=== PATIENT | female | born 1955 | race Caucasian/White ===

== ENCOUNTER 2018-02-25 08:53 | Inpatient (IN) ==
--- NOTE | 2018-02-25 06:47 | Discharge Summary ---
<Rajendra Quinones - Last Filed: 02/27/18 06:47> Orders not resulted at time of discharge: Pending orders 02/25/18 06:46 XR hip complete LT [XR] Routine 02/25/18 06:47 H/H [Hemoglobin and Hematocrit] [HEME] Routine 02/25/18 09:12 US anesthesia pain block [US] Routine Date of Encounter: 02/27/18 - Discharge Diagnosis (1) Arthritis of left hip Priority: Primary Status: Chronic (2) Status post total hip replacement, left Priority: Primary Status: Acute (3) DMII (diabetes mellitus, type 2) Priority: Secondary Status: Chronic Qualifiers: Diabetes mellitus staffing specialist insulin use: without longterm use Diabetes mellitus complication status: with unspecified complications Qualified Code(s) : E11.8 - Type 2 diabetes mellitus with unspecified complications (4) HLD (hyperlipidemia) Priority: Secondary Status: Chronic Qualifiers: Hyperlipidemia type: mixed hyperlipidemia Qualified Code(s): E78.2 - Mixed hyperlipidemia (5) HTN (hypertension) Priority: Secondary Status: Chronic Qualifiers: Hypertension type: essential hypertension Qualified Code(s): I10 - Essential (primary) hypertension (6) Obesity (BMI 30.0-34.9) Priority: Secondary Status: Chronic (7) Tobacco use Priority: Secondary Status: Chronic (8) Acute blood loss anemia Priority: Primary Status: Acute (9) Foot drop, left Priority: Primary Status: Acute - Hospital Course Hospital course: Ms. Zaidi is a 62 year old female - Time Spent with Patient Total time spent providing and/or coordinating discharge services: - Discharge Medications Home Medications: Aspirin Enteric Coated [Aspirin EC] 325 mg PO BID #20 tablet. 02/25/18 [Rx] Aspirin [Lo-Dose Aspirin EC] 81 mg PO DAILY 02/25/18 [History] Cetirizine HCl [All Day Allergy] 10 mg PO DAILY 02/25/18 [History] Escitalopram [Lexapro] 20 mg PO DAILY 02/25/18 [History] Gabapentin [Neurontin] 300 mg PO BID 02/25/18 [History] HYDROcodone/Acet 5/325 mg [[place] 5-325 mg] 1 tab PO Q6H PRN 7 Days #28 tab 02/25 [Rx] Levothyroxine [Synthroid] 25 mcg PO 0630 02/25/18 [History] Lisinopril/Hydrochlorothiazide [Zestoretic 20-12.5 mg Tablet] 1 tab PO DAILY [History] Lovastatin [Lovastatin] 10 mg PO HS 02/25/18 [History] Metformin HCl 500 mg PO BID 02/25/18 [History] Montelukast [Singulair] 10 mg PO HS 02/25/18 [History] Naproxen [Naproxen] 500 mg PO Q12H PRN 02/25/18 [History] Tizanidine HCl [Tizanidine HCl] 4 mg PO TID PRN 02/25/18 [History] Allergies/Adverse Reactions: 3 Allergy/AdvReac Type Severity Reaction Status Date / Time codeine Allergy Numbness Verified 02/12/18 13:37 sulfamethoxazole Allergy Swelling Verified 02/12/18 13:37 [From Bactrim] of Lip/Tongue/Throat trimethoprim [From Bactrim] Allergy Swelling Verified 02/12/18 13:37 of Lip/Tongue/Throat Primary care physician: Janene Duran CNP - Patient Status Disposition: Home Health Service Condition: Good - Discharge Instructions Follow Up With: Rajendra Quinones MD [Partnered Physician] - 03/27/18 4:45 pm Kell Rueda PAC [Physician Machine Chain Maker] - 03/07/18 8:00 am (Second followup: 03/15/18 @ 8am) Additional Instructions: Discharge Instructions: Total Hip Replacement Please call [facility] ([phone]), your Primary Care Physician, or report to the Emergency Room if you have any of the following symptoms: Nausea, vomiting, fever greater that 101.5, swelling, chest pain, shortness of breath, increased pain/redness/drainage/odor for your incision site, numbness/ tingling, or any other concerning symptoms. ACTIVITY:Weight-bearing as tolerated for 8 weeks with hip dislocation precautions that physical therapy taught you. You may progress as tolerated under the guidance of your physical therapist. You do not need to sleep with a pillow between your legs. You can also seep on the operative side or on your stomach. Incentive Spirometer 10 times an hour. MEDICATIONS: Upon discharge resume your home medications. Take all the medications as prescribed. Take a stool softener if taking narcotic pain medications. Stool softeners are only effective if you drink enough fluids. Drink 6-8 glass of water or fluids a day, unless this is not allowed for another health problem. Despite using stool softeners, if you haven't had a bowel movement in 3 days, please switch to a gentle laxative. Gentle laxatives are sold over the counter. You should have a bowel movement within 24 hours, if not call the office. You will be discharged from the hospital with a prescription for pain medication. You are encouraged to decrease the use of narcotic pain medication as tolerated. Should you require a refill, please call the office. [facility] prescribes narcotic pain medication for only 4-6 weeks after surgery. If you require pain medication beyond this time period, you may be referred to your Primary Care Physician or to the Pain Clinic for further evaluation. Plan ahead for refills on pain medication as many narcotics either need to be picked up at the office or mailed. It is best to call 48-72 hours in advance of needing a prescription refill so you don't run out of medication. To help control the post-operative pain, you may take NSAIDs (Aleve,Advil, Motrin, ibuprofen, naprosyn) or Tylenol as prescribed on the bottle in addition to the pain medication. ANTICOAGULATION (blood thinners): Continue your Aspirin, Lovenox or Coumadin as prescribed to help prevent a blood clot in the leg or in the lungs. As long as your incision remains dry and you tolerate the NSAIDs (Aleve, Advil, Motrin, Ibuprofen, Naprosyn), it is OK to use the NSAIDS while you are taking your anticoagulation medication. Should your incision start to drain, stop the NSAID and contact our office. Common symptoms of blood clot in the legs include: localized pain, swelling, calf tenderness, redness or discoloration of the skin. Blood clot in the lung symptoms include: shortness of breath, rapid pulse, sweating, and chest pain that worsens with deep breathing, coughing up blood, lightheadedness, feelings of anxiety. If you experience any of these symptoms notify your physician immediately, go to the emergency room, or if having trouble breathing, call 911. WOUND CARE: Leave the dressing on for 7 to 10days. You may change the dressing if it is saturated greater than 50%. Do not get the dressing wet at anytime. Wash your hands with antibacterial soap, rinse and dry prior to any wound care. If you have jaren the visiting nurse or rehab facility can remove the stapes 10-14 days after surgery and place steri-strips across the wound. Leave the steri-strips in place until they fall off on their own. You may let water from the shower run on top of the steri-strips. If you do not have a visiting nurse or rehab facility, you will need to return to the office at 10-14 days for the jaren to be removed. If you have itching or redness around the dressing call the office. FOLLOW-UP: Please follow up with your surgeon in the orthopedic clinic in 6 weeks from the day of surgery. If you have jaren that need to be removed, you will need to come back to the office in 10-14 days from the day of surgery. <Kell Rueda - Last Filed: 02/27/18 10:32> Date of Encounter: 02/27/18 Time of Encounter: 10:27 - Discharge Diagnosis (1) Status post total hip replacement, left Priority: Primary Status: Acute Comments: Hip: LEFT 02/25 Opsite dressing, leave intact until first post-operative visit. If dressing becomes >50% saturated, contact office, remove dressing and place appropriate dressing in its place. Do not allow for dressing to get wet. Zipline dressing in place, plan to remove at POD#14-16. PT: Total Hip Joint Precautions x 6 weeks AFO brace: Dx - Drop foot - continue to use while ambulating. PT to focus on ankle ROM and strength. Apply ICE/cold therapy wrap 3-6x/day for 20 minutes at a time. Encourage ambulation throughout the day and incentive spirometer 10x/hour. Elevate affected extremity above heart as tolerated. Brace: Hip Abduction brace at night x 6 weeks Acute blood loss anemia: Repeat H/H on 02/28/18, and Sunday 03/04 (2) Arthritis of left hip Priority: Primary Status: Chronic (3) Foot drop, left Status: Acute Comments: AFO brace: Dx - Drop foot - continue to use while ambulating. PT to focus on ankle ROM and strength. Apply ICE/cold therapy wrap 3-6x/day for 20 minutes at a time. Encourage ambulation throughout the day and incentive spirometer 10x/hour. Elevate affected extremity above heart as tolerated. (4) Acute blood loss anemia Status: Acute Comments: Acute blood loss anemia: Repeat H/H on 02/28/18, and Sunday 03/04 Short CBC 02/27/18 Range/Units 00:48 Hgb 9.1 L D (11.5-15.4) g/dL Hct 27.4 L (35.3-44.9) % BMP 02/27/18 Range/Units 00:48 Sodium 135 L (136-145) mEq/L Potassium 4.0 (3.5-5.1) mEq/L Chloride 101 (98-107) mEq/L Carbon Dioxide 27 (23-29) mEq/L BUN 15 (8-23) mg/dL Creatinine 0.65 (0.60-1.20) mg/dL Glucose 170 H (70-105) mg/dL Calcium 8.4 L (8.6-10.3) mg/dL (5) DMII (diabetes mellitus, type 2) Priority: Secondary Status: Chronic Qualifiers: Diabetes mellitus longterm insulin use: without longterm use Diabetes mellitus complication status: with unspecified complications Qualified Code(s) : E11.8 - Type 2 diabetes mellitus with unspecified complications (6) HTN (hypertension) Priority: Secondary Status: Chronic Qualifiers: Hypertension type: essential hypertension Qualified Code(s): I10 - Essential (primary) hypertension (7) HLD (hyperlipidemia) Priority: Secondary Status: Chronic Qualifiers: Hyperlipidemia type: mixed hyperlipidemia Qualified Code(s): E78.2 - Mixed hyperlipidemia (8) Tobacco use Priority: Secondary Status: Chronic (9) Obesity (BMI 30.0-34.9) Priority: Secondary Status: Chronic - Hospital Course Hospital course: Ms. Zaidi is a 62 year old female, status post Left THR 02/25. Patient was noted to have Left Drop foot on 02/26 - started AFO brace and discussed with patient. Will continue use during ambulation. Patient noted to have H/H drop 9.1, stable condition, asymptomatic. She has otherwise had uneventful post-operative course. PT recommended ECF placement, patient opted to return home with HH. HH to repeat H/H in AM, and again on Sunday 03/04 for monitoring. If patient becomes symptomatic she is to RTC. F/up as scheduled. Discharge 02/27 in stable condition. - Time Spent with Patient Total time spent providing and/or coordinating discharge services: Date of admission: 02/25 Primary care physician: Janene Duran CNP Anticipated date of discharge: 02/27/18 - Patient Status Functional capacity at discharge: independent ambulation Overall status at discharge: patient is progressing back to baseline (Left Drop foot discussed; Acute Blood loss anemia.)
[2018-02-25] MEDS ORDERED: Famotidine 20 MG/2 ML VIAL IVP ONE (09:10)
[2018-02-25] MEDS ORDERED: Pregabalin 75 MG CAPSULE PO ONE (09:11)
[2018-02-25] MEDS ORDERED: Acetaminophen IV 1,000 MG/100 ML INFUS..BTL IVPB ONE (09:11)
[2018-02-25] MEDS ORDERED: Ondansetron 4 MG/2 ML VIAL ONE (09:12)
[2018-02-25] MEDS ORDERED: *HR* Succinylcholine 200 MG/10 ML VIAL IVP ONE (09:12)
[2018-02-25] MEDS ORDERED: Lidocaine -MPF 2% 2 ML VIAL ONE (09:12)
[2018-02-25] MEDS ORDERED: CeFAZolin Syr 2,000MG/20 ML 2,000 MG/20 ML SYRINGE IVPB ONE (09:13)
[2018-02-25] MEDS ORDERED: *HR* FentaNYL (PF) 100 MCG/2 ML VIAL ONE ×3 (09:13→11:22)
[2018-02-25] MEDS ORDERED: Albuterol 2.5 MG/3 ML NEBULIZER IH ONE (09:13)
[2018-02-25] MEDS ORDERED: *HR* Midazolam HCl 2 MG/2 ML VIAL ONE (09:13)
[2018-02-25] MEDS ORDERED: *HR* Propofol 200 MG/20 ML VIAL IVP ONE ×2 (09:13→10:54)
[2018-02-25] MEDS ORDERED: Ringers Solution, Lactated 1,000 ML IVC SCH (09:15)
[2018-02-25] MEDS ORDERED: Dexamethasone 4 MG/ML VIAL ONE ×2 (09:15→11:12)
--- NOTE | 2018-02-25 09:27 | History & Physical Report ---
Date of Encounter: 02/25/18 Time of Encounter: 09:27 24 Hour HP Update - Instructions Instructions: If the History and Physical is less than 30 days old and was completed prior to A.M. admission and or procedure and has NOT been updated on calendar day of procedure please complete this update prior to performing procedure. - Update Patient reports changes in Medical Condition: No Changes in examination, assessment, or condition: No Changes in Medication: No Preop tests/diagnostics Reviewed: Yes Surgery Remains Indicated: Yes Consent for Planned Operative Procedure(s) Verified: Yes - Pre-Operative Checklist Preoperative Checklist Indicated: No Prophylactic Antibiotic Ordered: Yes Is VTE Prophylaxis Indicated?: Yes
[2018-02-25] MEDS ORDERED: Bupivacaine/Clonidine Syringe 1 EACH SYRINGE ONE (09:38)
--- NOTE | 2018-02-25 09:44 | Anesthesia Evaluation PreOp ---
Date of Encounter: 02/25/18 Time of Encounter: 09:40 - Past History Planned Operation: Left THR Cardiac History: HTN, Hyperlipidemia Pulmonary History: Smoker HIDE SPLITTER History: Denies Any Significant HX Other Medical History: Thyroid Anesthesia History: No Prior Anesthetic Complications : No Alcohol Use: none Drug use: none Medications and Allergies Aspirin Enteric Coated [Aspirin EC] 325 mg PO BID #20 tablet. 02/25/18 [Rx] Aspirin [Lo-Dose Aspirin EC] 81 mg PO DAILY 02/25/18 [History] Cetirizine HCl [All Day Allergy] 10 mg PO DAILY 02/25/18 [History] Escitalopram [Lexapro] 20 mg PO DAILY 02/25/18 [History] Gabapentin [Neurontin] 300 mg PO BID 02/25/18 [History] HYDROcodone/Acet 5/325 mg [[place] 5-325 mg] 1 tab PO Q6H PRN 7 Days #28 tab 02/25 [Rx] Levothyroxine [Synthroid] 25 mcg PO 0630 02/25/18 [History] Lisinopril/Hydrochlorothiazide [Zestoretic 20-12.5 mg Tablet] 1 tab PO DAILY [History] Lovastatin [Lovastatin] 10 mg PO HS 02/25/18 [History] Metformin HCl 500 mg PO BID 02/25/18 [History] Montelukast [Singulair] 10 mg PO HS 02/25/18 [History] Naproxen [Naproxen] 500 mg PO Q12H PRN 02/25/18 [History] Tizanidine HCl [Tizanidine HCl] 4 mg PO TID PRN 02/25/18 [History] 3 Allergy/AdvReac Type Severity Reaction Status Date / Time codeine Allergy Numbness Verified 02/12/18 13:37 sulfamethoxazole Allergy Swelling Verified 02/12/18 13:37 [From Bactrim] of Lip/Tongue/Throat trimethoprim [From Bactrim] Allergy Swelling Verified 02/12/18 13:37 of Lip/Tongue/Throat - Meds/Allergy Pre-op Review Medications Reviewed: Yes Allergies Reviewed: Yes Beta Blockers on Current Med List: No Anesthesia Results - Labs Laboratory Tests 02/12/18 02/12/18 13:47 13:47 Hgb 16.4 H Hct 48.2 H Plt Count 223 Sodium 135 L Potassium 3.9 BUN 10 Creatinine 0.74 - Imaging EKG: report reviewed (SB) Anesthesia Exam O2 Sat Height 1.57 m Height 1.57 m Height 1.57 m Weight 79.832 kg Weight 79.832 kg Weight 79.832 kg O2 Sat by Pulse Oximetry 94 O2 Sat by Pulse Oximetry 94 Vital Signs Temp Pulse Resp BP Pulse Ox 98.3 F 81 18 148/77 94 02/25/18 09:14 02/25/18 09:14 02/25/18 09:14 02/25/18 09:14 02/25/18 09:14 Height: 5'2 Weight: 176 lbs NPO (# of Hours): MN Pain Scale: 0 - HEENT Pupil (Motor): Pupils equal, EOMI Mallampati: III Teeth: Normal Oral Opening: Less than or equal to 3 - HIDE SPLITTER LOC: Oriented HIDE SPLITTER Motor: Normal RUE, Normal LUE, Normal RLE, Normal LLE, Normal Face HIDE SPLITTER Sensory: Normal: RUE, LUE, RLE, LLE, Face - Cardiac Rhythm: Regular Murmur: None JVD: No Carotid Bruit: No - Pulmonary Breath Sounds: bilateral Clear Respiratory Effort: Symmetrical Anesthesia Assess/Plan ASA Score: 2 Modified Michael Scale for Level of Consciousness: Cooperative, oriented, and tranquil Anesthetic Plan: General, Regional Monitoring Plan: Standard Monitors Recovery Plan: PACU (Discussed GA and Fascia Iliaca Block, agrees to proceed)
[2018-02-25] MEDS ORDERED: Ethanol\\Acetic Acid\\Na Ace\\Ben 1,000 ML IRRIG.SOLN IR ONE (10:04)
[2018-02-25] MEDS ORDERED: ROPIVACAINE HCL/PF 0.5% 30 ML VIAL ONE (10:11)
[2018-02-25] MEDS ORDERED: Water for inj. (sterile) 30 ML IV ONE (10:14)
[2018-02-25] MEDS ORDERED: Lidocaine -MPF 4% 5 ML AMPUL ONE (10:30)
--- NOTE | 2018-02-25 10:32 | Anesthesia Procedures ---
Date of Encounter: 02/25/18 Time of Encounter: 10:15 Procedures: Anesthesia - Nerve Block Procedure Date: 02/25/18 Time: 10:15 Allergies/Adv Reactions: 3 Allergy/AdvReac Type Severity Reaction Status Date / Time codeine Allergy Numbness Verified 02/12/18 13:37 sulfamethoxazole Allergy Swelling Verified 02/12/18 13:37 [From Bactrim] of Lip/Tongue/Throat trimethoprim [From Bactrim] Allergy Swelling Verified 02/12/18 13:37 of Lip/Tongue/Throat Pre-op Diagnosis: left hip arthritis Surgical Procedure: left robotic total hip Checklist: Correct Patient Identifier, Correct procedure, History checked Correct side: Left Blood Thinner: No Monitor Applied: EKG, BP, Pulse Oximetry Supplemental Oxygen via Nasal Cannula (L/min): 2 Sedation: Versed (mg): 2 Sedation: Fentanyl (mcg): 100 Indication: Post Op Analgesia Pre-op Neuro Deficits: No Block Type: Other (fascia illiaca) Sterile Technique: Yes Ultrasound used: Yes Anatomy identified: Yes Visual spread of Local: Yes Smooth Injection of Local: Yes Pain with Injection of Local: No Prep: Chlorhexadine Needle: 21 x 100 mm Stimuplex Local: Ropivacaine (0.25% ) Volume (cc): 60 Number of Attempts: 1 Complications: None/effective block Vitals: Vital Signs Vital Signs Assessment Start: 02/25/18 09:11 Freq: CONT Status: Active Protocol: Activity Type Activity Date Activity User E-Sign Co-Sign Detail Recorded Client Recorded Date Recorded By Created 02/25/18 09:12 SID [email or web address] 02/25/18 09:12 PASQUALEG DAEMON Temp Pulse Resp BP Pulse Ox 02/25/18 10:29 70 119/65 94 02/25/18 10:23 68 157/82 93 02/25/18 09:20 98.3 F 81 18 148/77 94 02/25/18 09:14 98.3 F 81 18 148/77 94
[2018-02-25] MEDS ORDERED: *HR* Magnesium Sulfate 1 GM/2 ML VIAL ONE (10:50)
[2018-02-25] MEDS ORDERED: *HR* PHENYLEPHRINE 1,000 MCG/10 ML SYRINGE IVP ONE (11:19)
[2018-02-25] MEDS ORDERED: *HR* OxyCODONE Immed Rel 5 MG TABLET PO PRN ×2 (11:32→14:01)
[2018-02-25] MEDS ORDERED: *HR* Meperidine 25 MG/ML SYRINGE IVP PRN (11:32)
[2018-02-25] MEDS ORDERED: Naloxone 0.4 MG/ML INJ IVP PRN ×2 (11:32→14:01)
[2018-02-25] MEDS ORDERED: *HR* Labetalol 20 MG/4 ML SYRINGE IVP PRN (11:32)
[2018-02-25] MEDS ORDERED: *HR* Promethazine 25 MG/ML VIAL IVP PRN (11:32)
--- NOTE | 2018-02-25 11:44 | Orthopedic Operative Note ---
Date of procedure: 02/25/18 Pre-op diagnosis: Left hip arthritis Post-op diagnosis: same Procedure: Procedure: Left Total Hip Replacment robotic-assisted Estimated blood loss: 200 cc Hardware: Metal and polyethylene replacement. Treva DM Cup: 52 cup Femoral size 9 stem Head: +8 head with Zoë Procedural Notes: Grade 4 arthritic changes femoral head acetabular socket, procedure performed with robotic assistance. 2 mm longer operative versus nonoperative side as measured by preoperative CT scan Operative procedure: The patient was brought to the operating room and placed on the operating room table. After general anesthesia was administered the patient was placed in the lateral decubitus position with the operative leg up. All pressure points were padded appropriately and the head was stabilized in the neutral position. The operative extremity was prepped and draped in the sterile surgical fashion patient received IV antibiotic prior to skin incision. 3 Steinmann pins were placed in the iliac crest 3 cm proximal to the anterior superior iliac spine this was for the robotic-assisted sensor. This was done through a small 2 cm incision. A standard posterior approach is made to the operative hip, the incision was made through the skin and subcutaneous tissue hemostasis was obtained with Bovie cautery. Using careful sharp dissection the fascia was identified and incised exposing the external rotators. The femoral checkpoint was placed leg length was measured at this time utilizing robotic assistance. The external rotators were released off the greater trochanter and tagged with # 2 FiberWire suture. The capsule was T'd open and the hip was brought into internal rotation. Patient noted to have grade 4 arthritic changes femoral head. The femoral neck cut was made at the appropriate level roughly 11 mm proximal to the lesser trochanter aced on preoperative templating. An anterior capsulotomy was performed for the anterior retractor. Soft tissues removed from the acetabulum. Patient noted to have grade 4 arthritic changes acetabulum. The acetabulum checkpoint was placed confirmed. The acetabulum was then mapped with robotic assistance. Based on the preoperative plan the acetabulum was reamed in one step with a X reamer. The X acetabulum was impacted with robotic assistance and 44 degrees of abduction and 23 degrees of anteversion. The hip was brought back in to internal rotation and prepared with the drink box mechanic followed by the canal finder followed by the reaming process to a size 9/ 10 broaching process in 20 degrees anteversion. It was broached up to the appropriate size 9. Trial reduction revealed leg lengths close to normal. The femoral implant was impacted in place in 20 degrees of anteversion. Trial reduction found the hip to be stable with 8 head and Zoë. The trials were removed and the real implants were impacted in place. The hip was reduced, patient had robotic confirmed leg length of 20 mm longer than the contralateral side. The hip had excellent stability with forward flexion to 90 degrees adduction of 30 degrees and internal rotation of 60 degrees. The hip had no shuck. The hips after 2 minutes with a antibacterial solution. It was irrigated out with 2 L of pulse irrigation. The checkpoints were removed, Steinmann pins were removed. The hip was closed by the PA. The deep tissue was irrigated and closed deep with #1 PDS suture superficially with 0 PDS suture and skin was closed with Dermabond and zip tie. The patient was placed in a sterile dressing and abduction pillow. The patient was extubated and transferred to the recovery room in stable condition. Anesthesia: GETA Surgeon: Rajendra Quinones Was there an access services assistant present: Yes Forest Firefighter: Kell Rueda Estimated blood loss (cc): 200 Condition: stable Disposition: PACU
[2018-02-25] MEDS: *HR* HYDROmorphone (PF) 1 MG/ML SYRINGE IVP PRN ×2 (12:29→12:34)
--- NOTE | 2018-02-25 12:45 | Anesthesia Evaluation Post Op ---
Date of Encounter: 02/25/18 Time of Encounter: 12:44 - Vital Signs Vital Signs: Vital Signs/O2 Sat/Glucose, Most Recent Temp Pulse Resp BP Pulse Ox 97.8 F 93 16 94/71 96 02/25/18 12:10 02/25/18 12:40 02/25/18 12:40 02/25/18 12:40 02/25/18 12:40 Blood Glucose* 147 - Lungs Lungs: Clear Ascult./Percussion - Airway Airway: Non-obstructed - Cardiovascular Regular Rate - Mental Status Mental Status: Alert & Oriented, Answers Appropriately - Pain Pain Scale used: [place] (Faces) - Nausea Vomiting Nausea Vomiting: Not Present - Hydration Hydration: Ice chips - Discharge PostOp Status: Transfer Patient to floor
[2018-02-25 13:06] LABS: Hematocrit 42.9 % (35.3-44.9); Hemoglobin 14.3 g/dL (11.5-15.4)
[2018-02-25] MEDS ORDERED: Ondansetron 4 MG/2 ML VIAL IVP PRN (14:01)
[2018-02-25] MEDS ORDERED: D5% in Water 1,000 ML IVC PRN (14:01)
[2018-02-25] MEDS ORDERED: tiZANidine 4 MG TABLET PO PRN (14:01)
[2018-02-25] MEDS ORDERED: MOM Conc 10 ML UD.LIQ PO PRN (14:01)
[2018-02-25] MEDS ORDERED: Sennosides 8.6 MG TABLET PO PRN (14:01)
[2018-02-25] MEDS ORDERED: Temazepam 15 MG CAPSULE PO PRN (14:01)
[2018-02-25] MEDS ORDERED: *HR* Dextrose 50 % in Water (Syg) 50 ML SYRINGE IVP PRN (14:01)
[2018-02-25] MEDS ORDERED: Dextrose Gel 15 GM/37.5 ML TUBE PO PRN ×2 (14:01)
[2018-02-25] MEDS ORDERED: traMADol 50 MG TABLET PO PRN (14:01)
[2018-02-25] MEDS ORDERED: Ringers Solution, Lactated 500 ML IVC ONE (15:07)
[2018-02-25] MEDS: Insulin LISPRO 300 UNITS/3 ML VIAL SQ SCH ×3 (15:58→21:55)
[2018-02-25] MEDS: Ascorbic Acid 500 MG TABLET PO SCH (17:35)
[2018-02-25] MEDS: *HR* Metformin 500 MG TABLET PO SCH (17:35)
[2018-02-25] MEDS: *HR* Enoxaparin 30 MG/0.3 ML SYRINGE SQ SCH (17:37)
[2018-02-25] MEDS ORDERED: *HR* Enoxaparin 30 MG/0.3 ML SYRINGE SQ SCH (18:00)
[2018-02-25] MEDS: Gabapentin 300 MG CAPSULE PO SCH (21:54)
[2018-02-25] MEDS: *HR* OxyCODONE/APAP 5/325 TABLET PO PRN (22:52)
[2018-02-26 02:11] LABS: Hematocrit 35.9 % (35.3-44.9)
[2018-02-26 02:12] LABS: Hemoglobin 11.9 g/dL (11.5-15.4)
[2018-02-26 02:31] LABS: Calcium 8.4 mg/dL (8.6-10.3); Potassium 4.7 mEq/L (3.5-5.1)
[2018-02-26] MEDS: Levothyroxine 25 MCG TABLET PO SCH (06:38)
[2018-02-26] MEDS: *HR* Enoxaparin 30 MG/0.3 ML SYRINGE SQ SCH ×2 (06:38→17:29)
[2018-02-26] MEDS: *HR* OxyCODONE/APAP 5/325 TABLET PO PRN (06:42)
--- NOTE | 2018-02-26 06:51 | Orthopedics Progress Note ---
Date of Encounter: 02/26/18 Time of Encounter: 06:50 - Assessment and Plan (1) Arthritis of left hip Current Visit: No Status: Chronic (2) Status post total hip replacement, left Current Visit: No Status: Acute (3) DMII (diabetes mellitus, type 2) Current Visit: No Status: Chronic Qualifiers: Diabetes mellitus termite technician insulin use: without [place] [facility] use Diabetes mellitus complication status: with unspecified complications Qualified Code(s) : E11.8 - Type 2 diabetes mellitus with unspecified complications (4) HLD (hyperlipidemia) Current Visit: No Status: Chronic Qualifiers: Hyperlipidemia type: mixed hyperlipidemia Qualified Code(s): E78.2 - Mixed hyperlipidemia (5) HTN (hypertension) Current Visit: No Status: Chronic Qualifiers: Hypertension type: essential hypertension Qualified Code(s): I10 - Essential (primary) hypertension (6) Obesity (BMI 30.0-34.9) Current Visit: No Status: Chronic (7) Tobacco use Current Visit: No Status: Chronic Subjective Interval history: Patient was seen this morning doing well without complaints. Afebrile vital signs stable. Operative extremity: Patient with signs consistent with drop foot Dressing clean dry and intact Calves nontender Assessment and plan: Continue with postoperative care left dropfoot concerns were discussed with the patient, patient will be fitted with AFO, we will continue to monitor. Hematocrit 35 Objective Vital signs: Vital Signs Temp Pulse Resp BP Pulse Ox 02/26/18 04:30 98.7 F 79 16 108/67 99 02/25/18 23:15 98.5 F 65 16 101/65 95 02/25/18 19:29 97.7 F 67 16 104/64 96 02/25/18 17:44 92/60 02/25/18 16:05 97.6 F 67 15 86/51 96 02/25/18 14:40 98 F 74 16 80/51 94 02/25/18 14:03 86/56 02/25/18 13:45 97.9 F 89 17 93 02/25/18 13:13 97.5 F L 83 17 91/58 98 02/25/18 13:12 98 02/25/18 12:50 97.8 F 87 16 102/79 02/25/18 12:40 97.6 F 93 16 94/71 96 02/25/18 12:30 101 16 98/89 98 02/25/18 12:20 81 14 91/64 100 02/25/18 12:10 97.8 F 78 16 104/61 100 02/25/18 10:29 70 119/65 94 02/25/18 10:23 68 157/82 93 02/25/18 09:20 98.3 F 81 18 148/77 94 02/25/18 09:14 98.3 F 81 18 148/77 94 Intake and Output 02/25/18 02/25/18 02/26/18 15:59 23:59 07:59 Intake Total 20 / 20 200 / 200 200 / 200 Output Total 200 / 200 450 / 450 Balance -180 / -180 200 / 200 -250 / -250 Intake: IV Fluids 20 / 20 100 / 100 Ancef Syringe 2,000 MG/20 ML 2, 20 / 20 000 mg In 20 ml @ 200 mls/hr IVPB PREOP ONE Rx#:[id number] Ancef 2,000 MG In 0.9 % Sodium 100 / 100 Chloride 100 ML @ 200 mls/hr IVPB Q8HR ROSA ISELA Rx#:[id number] Oral 100 / 100 200 / 200 Output: Urine 450 / 450 Estimated Blood Loss 200 / 200 Other: Weight 79.832 kg Blood Glucose* 152 246 - Labs CBC & BMP: 02/26/18 01:17 02/26/18 01:17 Labs: Abnormal lab results Sodium 134 mEq/L (136-145) L 02/26/18 01:17 Creatinine 1.31 mg/dL (0.60-1.20) H 02/26/18 01:17 Est GFR ( Amer) 50 (> 60) L 02/26/18 01:17 Est GFR (Non-Af Amer) 41 (> 60) L 02/26/18 01:17 Glucose 160 mg/dL (70-105) H 02/26/18 01:17 POC Glucose 195 mg/dL (70-99) H 02/25/18 16:42 Calcium 8.4 mg/dL (8.6-10.3) L 02/26/18 01:17 - VTE Documentation of Mechanical Device: Venous foot pump, device Consult Discharge Plan - Plan Referrals: Janene Duran, SALES FORECAST ANALYST [Primary Care Provider] -
[2018-02-26] MEDS: Insulin LISPRO 300 UNITS/3 ML VIAL SQ SCH ×4 (08:23→21:48)
[2018-02-26] MEDS: Ascorbic Acid 500 MG TABLET PO SCH ×2 (08:24→16:22)
[2018-02-26] MEDS: Loratadine 10 MG TABLET PO SCH (08:24)
[2018-02-26] MEDS: Gabapentin 300 MG CAPSULE PO SCH ×2 (08:24→19:59)
[2018-02-26] MEDS: *HR* Metformin 500 MG TABLET PO SCH ×2 (08:24→16:34)
[2018-02-26] MEDS: Aspirin Enteric Coated 81 MG Tablet PO SCH (08:24)
[2018-02-26] MEDS: Multivit/Ca/Min/Fe/FA 1 TAB TABLET PO SCH (08:24)
[2018-02-26] MEDS: Lisinopril-HCTZ 20-12.5mg TABLET PO SCH (08:42)
[2018-02-26] MEDS ORDERED: Ringers Solution, Lactated 500 ML IVC ONE ×2 (08:42→09:00)
[2018-02-26] MEDS ORDERED: *HR* HYDROcodone/Acet 5/325 mg TABLET PO PRN (12:45)
[2018-02-26] MEDS: *HR* HYDROcodone/Acet 10/325 mg TABLET PO PRN ×2 (12:57→23:22)
[2018-02-26] MEDS: tiZANidine 4 MG TABLET PO SCH ×2 (16:22→19:59)
[2018-02-26] MEDS: Ringers Solution, Lactated 1,000 ML IVC SCH (17:28)
[2018-02-27 01:16] LABS: Hematocrit 27.4 % (35.3-44.9)
[2018-02-27 01:17] LABS: Hemoglobin 9.1 g/dL (11.5-15.4)
[2018-02-27 01:36] LABS: BUN/Creatinine Ratio 23 (6-26); Blood Urea Nitrogen 15 mg/dL (8-23); Calcium 8.4 mg/dL (8.6-10.3); Carbon Dioxide 27 mEq/L (23-29); Chloride 101 mEq/L (98-107); Glucose 170 mg/dL (70-105); Osmolality,Calculated 285 (280-300); Sodium 135 mEq/L (136-145); eGFR For Non-African Americans > 60 (> 60)
[2018-02-27] MEDS: *HR* HYDROcodone/Acet 10/325 mg TABLET PO PRN (03:54)
[2018-02-27] MEDS: Levothyroxine 25 MCG TABLET PO SCH (06:27)
[2018-02-27] MEDS: *HR* Enoxaparin 30 MG/0.3 ML SYRINGE SQ SCH (06:29)
[2018-02-27] MEDS: Ringers Solution, Lactated 1,000 ML IVC SCH (06:37)
--- NOTE | 2018-02-27 06:49 | Orthopedics Progress Note ---
Date of Encounter: 02/27/18 Time of Encounter: 06:48 - Assessment and Plan (1) Arthritis of left hip Current Visit: No Status: Chronic (2) Status post total hip replacement, left Current Visit: No Status: Acute (3) DMII (diabetes mellitus, type 2) Current Visit: No Status: Chronic Qualifiers: Diabetes mellitus lobsterman insulin use: without custodial use Diabetes mellitus complication status: with unspecified complications Qualified Code(s) : E11.8 - Type 2 diabetes mellitus with unspecified complications (4) HLD (hyperlipidemia) Current Visit: No Status: Chronic Qualifiers: Hyperlipidemia type: mixed hyperlipidemia Qualified Code(s): E78.2 - Mixed hyperlipidemia (5) HTN (hypertension) Current Visit: No Status: Chronic Qualifiers: Hypertension type: essential hypertension Qualified Code(s): I10 - Essential (primary) hypertension (6) Obesity (BMI 30.0-34.9) Current Visit: No Status: Chronic (7) Tobacco use Current Visit: No Status: Chronic (8) Acute blood loss anemia Current Visit: Yes Status: Acute (9) Foot drop, left Current Visit: Yes Status: Acute Subjective Interval history: Patient was seen this morning doing well without complaints. Afebrile vital signs stable. Operative extremity: Patient with signs consistent with drop foot Dressing clean dry and intact Calves nontender Assessment and plan: Continue with postoperative care left dropfoot concerns were discussed with the patient, patient will be fitted with AFO, patient with tingling sensation in foot most likely sciatic nerve neuropathy will continue to monitor closely, hematocrit 27. Discharge today Objective Vital signs: Vital Signs Temp Pulse Resp BP Pulse Ox 02/27/18 04:18 98.2 F 67 16 149/74 93 02/26/18 23:17 98.2 F 68 16 106/73 94 02/26/18 21:47 98.5 F 72 16 111/71 93 02/26/18 16:30 98.0 F 72 16 102/61 94 02/26/18 11:21 98.5 F 76 16 114/60 95 02/26/18 06:56 97.9 F 62 16 114/68 94 Intake and Output 02/26/18 02/26/18 02/27/18 15:59 23:59 07:59 Intake Total 1000 / 1000 Output Total 800 / 800 400 / 400 300 / 300 Balance -800 / -800 -400 / -400 700 / 700 Intake: IV Fluids 1000 / 1000 Lactated Ringers 1,000 ML @ 75 1000 / 1000 mls/hr IVC .[id number] ROSA ISELA Rx#: [id number] Output: Urine 800 / 800 400 / 400 300 / 300 Other: # Voids 1 Blood Glucose* 199 157 - Labs CBC & BMP: 02/27/18 00:48 02/27/18 00:48 Labs: Abnormal lab results Hgb 9.1 g/dL (11.5-15.4) L D 02/27/18 00:48 Hct 27.4 % (35.3-44.9) L 02/27/18 00:48 Sodium 135 mEq/L (136-145) L 02/27/18 00:48 Glucose 170 mg/dL (70-105) H 02/27/18 00:48 POC Glucose 149 mg/dL (70-99) H 02/26/18 16:31 Calcium 8.4 mg/dL (8.6-10.3) L 02/27/18 00:48 - VTE Documentation of Mechanical Device: Venous foot pump, device Consult Discharge Plan - Plan Referrals: Janene Duran, DIRECT[employer] OF [employer] [Primary Care Provider] -
[2018-02-27] MEDS: Insulin LISPRO 300 UNITS/3 ML VIAL SQ SCH ×2 (08:25→13:23)
[2018-02-27] MEDS: Aspirin Enteric Coated 81 MG Tablet PO SCH (08:42)
[2018-02-27] MEDS: *HR* Metformin 500 MG TABLET PO SCH (08:42)
[2018-02-27] MEDS: Multivit/Ca/Min/Fe/FA 1 TAB TABLET PO SCH (08:42)
[2018-02-27] MEDS: Loratadine 10 MG TABLET PO SCH (08:42)
[2018-02-27] MEDS: Gabapentin 300 MG CAPSULE PO SCH (08:42)
[2018-02-27] MEDS: tiZANidine 4 MG TABLET PO SCH (08:42)
[2018-02-27] MEDS: Ascorbic Acid 500 MG TABLET PO SCH (08:42)
--- NOTE | 2018-02-27 10:27 | Physician Discharge Referral ---
Home Health/Hosp Referral Info Transfer to: Home Health Attending Provider: Provider in Charge Post Discharge: PCP - Diagnosis (1) Status post total hip replacement, left Priority: Primary Status: Acute (2) Arthritis of left hip Priority: Primary Status: Chronic (3) Foot drop, left Priority: Primary Status: Acute (4) DMII (diabetes mellitus, type 2) Priority: Secondary Status: Chronic (5) HTN (hypertension) Priority: Secondary Status: Chronic (6) HLD (hyperlipidemia) Priority: Secondary Status: Chronic (7) Tobacco use Priority: Secondary Status: Chronic (8) Obesity (BMI 30.0-34.9) Priority: Secondary Status: Chronic (9) Acute blood loss anemia Priority: Secondary Status: Acute - Respiratory Orders None Smoking Cessation: Smoking cessation has been advised. For more information, call the [place] Tobacco Quit Line at 4-762-GKIH-NOW. - Diet/Nutrition Diet/Nutrition Orders: Regular - Activity Activity Orders: Up ad nuha, Ambulate, Walker - Services Needed Following services are medically necessary services: Nursing, Home Health Aide, Physical Therapy, Occupational Therapy Home Care Orders: Hip: LEFT 02/25 Opsite dressing, leave intact until first post-operative visit. If dressing becomes >50% saturated, contact office, remove dressing and place appropriate dressing in its place. Do not allow for dressing to get wet. Zipline dressing in place, plan to remove at POD#14-16. PT: Total Hip Joint Precautions x 6 weeks AFO brace: Dx - Drop foot - continue to use while ambulating. PT to focus on ankle ROM and strength. Apply ICE/cold therapy wrap 3-6x/day for 20 minutes at a time. Encourage ambulation throughout the day and incentive spirometer 10x/hour. Elevate affected extremity above heart as tolerated. Brace: Hip Abduction brace at night x 6 weeks Acute blood loss anemia: Repeat H/H on 02/28/18, and Sunday 03/04 F - Transfer Medications Home Medications: Aspirin Enteric Coated [Aspirin EC] 325 mg PO BID #20 tablet. 02/25/18 [Rx] Aspirin [Lo-Dose Aspirin EC] 81 mg PO DAILY 02/25/18 [History] Cetirizine HCl [All Day Allergy] 10 mg PO DAILY 02/25/18 [History] Escitalopram [Lexapro] 20 mg PO DAILY 02/25/18 [History] Gabapentin [Neurontin] 300 mg PO BID 02/25/18 [History] HYDROcodone/Acet 5/325 mg [[place] 5-325 mg] 1 tab PO Q6H PRN 7 Days #28 tab 02/25 [Rx] Levothyroxine [Synthroid] 25 mcg PO 0630 02/25/18 [History] Lisinopril/Hydrochlorothiazide [Zestoretic 20-12.5 mg Tablet] 1 tab PO DAILY [History] Lovastatin [Lovastatin] 10 mg PO HS 02/25/18 [History] Metformin HCl 500 mg PO BID 02/25/18 [History] Montelukast [Singulair] 10 mg PO HS 02/25/18 [History] Naproxen [Naproxen] 500 mg PO Q12H PRN 02/25/18 [History] Tizanidine HCl [Tizanidine HCl] 4 mg PO TID PRN 02/25/18 [History] Allergies/Adverse Reactions: 3 Allergy/AdvReac Type Severity Reaction Status Date / Time codeine Allergy Numbness Verified 02/12/18 13:37 sulfamethoxazole Allergy Swelling Verified 02/12/18 13:37 [From Bactrim] of Lip/Tongue/Throat trimethoprim [From Bactrim] Allergy Swelling Verified 02/12/18 13:37 of Lip/Tongue/Throat Certification: Further, I certify that my clinical findings support that this patient is homebound (i.e. absences from home require considerable and taxing effort and are for medical reasons or buddhism services or infrequently or short duration when for other reasons) because: Homebound Reason: Post-surgery restriction and or conditions limit ability to leave home Attestation: My signature below is to certify that this patient is under my care and that I, or nurse practitioner, or a physician's dyer assistant working with me, has a face-to -face encounter with this patient.
[2018-02-27] MEDS: Lisinopril-HCTZ 20-12.5mg TABLET PO SCH (11:25)
[2018-02-27] MEDS ORDERED: 0.9 % Sodium Chloride 500 ML IVC ONE (11:38)
[2018-02-27] MEDS ORDERED: 0.9 % Sodium Chloride 500 ML ONE (11:48)
[2018-02-27 13:26] VITALS: BP 123/72
== END 2018-02-27 13:45 | disposition home health service (06) | DRG 301 ==
LOC: SAMDAY 08:53 → 3NENU 12:59
PROVIDERS: ADMIT Orthopaedic Surgery; ATTEND Orthopaedic Surgery